=== PATIENT | female | born 1955 | race Caucasian/White ===

== ENCOUNTER → 2017-01-02 | Outpatient (CLI) | payer OTHER ==
--- NOTE | ~2017-01-02 | ENPV ---
Carotid Duplex Study Demographics Patient Name MARTI JO Date of Study 01/02/2017 Patient Number [id number] Gender Female Date of 1955 Age 61 Visit Number [id number] Height Accession Number [id number] Weight Room Number BSA BMI Referring Oliva Zamudio MD Interpreting Clayton Suero MD Physician Physician Physician Ordering Physician Oliva Zamudio [employer] Purse Framer Leandro Nick, RVT Thanh Middleton RVT Conclusions Summary The right proximal internal carotid artery has mild, 1-39%, stenosis by heterogeneous/calcific plaque. The left proximal internal carotid artery has mild, 1-39%, stenosis by heterogeneous plaque. Bilateral vertebral arteries are antegrade. Procedure Type of Study: Cerebral:Carotid, Carotid Doppler Bilateral. Indications for Study:Transient Visual Loss and Dizziness. Additional Indications:Blurry vision Vision changes Appropriate Use Criteria:7 Blood Pressure:Right arm 138/63 mmHg.Left arm 127/71 mmHg. Patient Status:Routine. Study Location:Vascular Lab. Technical Quality:Adequate visualization. Velocities are measured in cm/s ; Diameters are measured in cm Carotid Right Measurements Carotid Left Measurements + +--------+--------+ + + + +--------+ --------+ + + !Location !PSV !EDV !Angle !%Stenosis ! !Location !PSV ! EDV !Angle !%Stenosis ! + +--------+--------+ + + + +--------+ --------+ + + !Prox CCA !86 !18 !56 ! ! !Prox CCA !83 ! 20 !60 ! ! + +--------+--------+ + + + +--------+ --------+ + + !Dist CCA !65 !23 !60 ! ! !Dist CCA !62 ! 25 !60 ! ! + +--------+--------+ + + + +--------+ --------+ + + !Prox ICA !46 !15 !60 !1-39% ! !Prox ICA !55 ! 22 !60 !1-39% ! + +--------+--------+ + + + +--------+ --------+ + + !Dist ICA !99 !45 !52 ! ! !Dist ICA !100 ! 46 !40 ! ! + +--------+--------+ + + + +--------+ --------+ + + !Prox ECA !90 ! !56 ! ! !Prox ECA !83 ! !46 ! ! + +--------+--------+ + + + +--------+ --------+ + + !Vertebral !40 ! ! ! ! !Vertebral !35 ! ! ! ! + +--------+--------+ + + + +--------+ --------+ + + !Subclavian !102 ! ! ! ! !Subclavian !82 ! ! ! ! + +--------+--------+ + + + +--------+ --------+ + + - There is antegrade vertebral flow noted on the right side. - There is antegrade verte bral flow noted on the left side. - Add'l Measurements:ICAPSV/CCAPSV 1.15.ICAEDV/CCAEDV 2.47. - Add'l Measurements:ICAPS V/CCAPSV 1.19.ICAEDV/CCAEDV 2.25. Signature dtt: dtd: 01/02/17 0854 Physician Self Edit
--- NOTE | ~2017-01-02 | ENPV ---
Carotid Duplex Study Demographics Patient Name MARTI JO Date of Study 01/02/2017 Patient Number [id number] Gender Female Date of 1955 Age 61 Visit Number [id number] Height Accession Number [id number] Weight Room Number BSA BMI Referring Oliva Zamudio MD Interpreting Clayton Suero MD Physician Physician Physician Ordering Physician Oliva Zamudio Home Supervisor Customer Service Rep Leanrdo Nick, T Conclusions Summary The right proximal internal carotid artery has mild, 1-39%, stenosis by heterogeneous/calcific plaque. The right proximal internal carotid artery has mild, 1-39%, stenosis by heterogeneous plaque. Bilateral vertebral arteries are antegrade. Procedure Type of Study: Cerebral:Carotid, Carotid Doppler Bilateral. Indications for Study:Transient Visual Loss and Dizziness. Additional Indications:Blurry vision Vision changes Appropriate Use Criteria:7 Blood Pressure:Right arm 138/63 mmHg.Left arm 127/71 mmHg. Patient Status:Routine. Study Location:Vascular Lab. Technical Quality:Adequate visualization. Velocities are measured in cm/s ; Diameters are measured in cm Carotid Right Measurements Carotid Left Measurements + +--------+--------+ + + + +--------+ --------+ + + !Location !PSV !EDV !Angle !%Stenosis ! !Location !PSV ! EDV !Angle !%Stenosis ! + +--------+--------+ + + + +--------+ --------+ + + !Prox CCA !86 !18 !56 ! ! !Prox CCA !83 ! 20 !60 ! ! + +--------+--------+ + + + +--------+ --------+ + + !Dist CCA !65 !23 !60 ! ! !Dist CCA !62 ! 25 !60 ! ! + +--------+--------+ + + + +--------+ --------+ + + !Prox ICA !46 !15 !60 !1-39% ! !Prox ICA !55 ! 22 !60 !1-39% ! + +--------+--------+ + + + +--------+ --------+ + + !Dist ICA !99 !45 !52 ! ! !Dist ICA !100 ! 46 !40 ! ! + +--------+--------+ + + + +--------+ --------+ + + !Prox ECA !90 ! !56 ! ! !Prox ECA !83 ! !46 ! ! + +--------+--------+ + + + +--------+ --------+ + + !Vertebral !40 ! ! ! ! !Vertebral !35 ! ! ! ! + +--------+--------+ + + + +--------+ --------+ + + !Subclavian !102 ! ! ! ! !Subclavian !82 ! ! ! ! + +--------+--------+ + + + +--------+ --------+ + + - There is antegrade vertebral flow noted on the right side. - There is antegrade verte bral flow noted on the left side. - Add'l Measurements:ICAPSV/CCAPSV 1.15.ICAEDV/CCAEDV 2.47. - Add'l Measurements:ICAPS V/CCAPSV 1.19.ICAEDV/CCAEDV 2.25. Signature dtt: CHRISTINA HAMPTON dtd: 01/02/17 0854 Physician Self Edit
== END | disposition disaster alternative care site (69) ==
LOC: GCAR 08:49
DX: H53.8 Other visual disturbances (principal); I65.21 Occlusion and stenosis of right carotid artery